=== PATIENT | male | born 1985 | race Caucasian/White ===

== ENCOUNTER → 2019-07-14 | Outpatient (CLI) | payer SELFPAY | LOC: COL.RAD 13:24 | DX: R22.1 Localized swelling, mass and lump, neck (principal) ==

== ENCOUNTER 2019-08-03 10:16 | Day surgery (SDC) | payer OTHER ==
[~2019-08-03] VITALS: Ht 157.5 cm; Wt 66.3 kg
[2019-08-03 10:54] VITALS: BP 124/69; PULSE 73; TEMP 98.7
[2019-08-03] MEDS ORDERED: LIPITOR 40MG TA40 MG PO (10:58)
[2019-08-03] MEDS ORDERED: TRICOR145 MG PO (10:59)
[2019-08-03] MEDS ORDERED: BENICAR 20MG TA20 MG PO (11:00)
[2019-08-03] MEDS ORDERED: SYNTHROID0.112 MG/T PO (11:00)
[2019-08-03] MEDS ORDERED: MULTI VITAMINS1 TAB PO (11:01)
[2019-08-03] MEDS ORDERED: BYSTOLIC10 MG PO (11:01)
--- NOTE | 2019-08-03 11:01 | NUR ---
TO RM AT 1030-CALL LIGHT IN REACH FATHER AT BEDSIDE
[2019-08-03 13:42] VITALS: BP 121/66; PULSE 81; TEMP 97.4
--- NOTE | 2019-08-03 13:42 | NUR ---
TO RM 7 PER CART FROM PACU. ALERT AND ORIENTED X3, TALKING TO STAFF AND FAMILY. 02 SAT 99% ON ROOM AIR.
[2019-08-03 13:54] VITALS: TEMP 97.8
[2019-08-03 14:00] VITALS: BP 110/70; PULSE 75
--- NOTE | 2019-08-03 14:00 | NUR ---
NOEL SET OVER INCISION SITE CLEAN DRY INTACT. RECEIVED ICE WATER AND NIRMALA. PUDDING.
[2019-08-03] MEDS ORDERED: TYLENOL 500MG500 MG PO (14:07)
[2019-08-03 14:15] VITALS: BP 119/72; PULSE 80
--- NOTE | 2019-08-03 14:15 | NUR ---
ATE 100% AND TOLERATED WELL AMBULATED TO BATHROOM VOIDED AND TOLERATED WELL.
--- NOTE | 2019-08-03 14:30 | NUR ---
RECEIVED DISCHARGE INSTRUCTIONS AND VERBALIZED UNDERSTANDING. DISCONTINUED IV AND INT- CATHETER INTACT PATIENT GETTING DRESSED
--- NOTE | 2019-08-03 14:40 | NUR ---
DISCHARGED ACCOMPANIED BY NURSING STAFF. PATIENT INSISTED TO AMBULATED OUT. AMBULATED WITH NURSE AND FATHER.
== END 2019-08-03 14:56 | disposition home or self-care (01) ==
LOC: SDCO 10:16
DX: D17.0 Benign lipomatous neoplasm of skin and subcutaneous tissue of head, face and neck (principal); Z79.899 Other long term (current) drug therapy; I10 Essential (primary) hypertension; E78.00 Pure hypercholesterolemia, unspecified; E03.9 Hypothyroidism, unspecified; Z85.6 Personal history of leukemia
CPT/HCPCS: J1100; J2405; J2704; J3010; J7120